=== PATIENT | female | born 1995 | race Caucasian/White ===

== ENCOUNTER 2020-02-25 09:27 | Emergency (ER) | payer OTHER ==
[2020-02-25 10:18] LABS: BASOPHILS # (AUTO) 0.1 10^3/uL (0.0-0.1); BASOPHILS % (AUTO) 0.8 %; EOSINOPHILS # (AUTO) 0.1 10^3/uL (0.0-0.7); EOSINOPHILS % (AUTO) 1.2 %; HGB - HEMOGLOBIN 14.3 g/dL (12.0-16.0); LYMPHOCYTES # (AUTO) 1.8 10^3/uL (1.5-3.5); LYMPHOCYTES % (AUTO) 21.7 %; MEAN CORPUSCULAR HEMOGLOBIN 28.8 pg (27.0-31.0); MEAN CORPUSCULAR HGB CONC 32.4 g/dL (32.0-36.0); MEAN CORPUSCULAR VOLUME 88.9 fL (81.0-99.0); MEAN PLATELET VOLUME 11.7 fL (7.9-10.8); MONOCYTES # (AUTO) 0.4 10^3/uL (0.0-1.0); MONOCYTES % (AUTO) 4.5 %; NEUTROPHILS % (AUTO) 71.4 %; PLT - PLATELET COUNT 191 10^3/uL (130-450); RED BLOOD COUNT 4.97 10^6/uL (4.20-5.40); RED CELL DISTRIBUTION WIDTH 11.8 % (12.0-15.0); WHITE BLOOD COUNT 8.5 x10^3/uL (4.8-10.8)
[2020-02-25 10:25] LABS: HCG UR QUAL NEGATIVE
[2020-02-25 10:26] LABS: CLARITY,URINE CLEAR (CLEAR); LEUKOCYTE ESTERASE, URINE SMALL (NEGATIVE); NITRITE,URINE NEGATIVE (NEGATIVE); UROBILINOGEN,URINE 0.2 (NORMAL) E.U./dL (NORMAL)
[2020-02-25 10:27] LABS: BILIRUBIN,URINE NEGATIVE (NEGATIVE); GLUCOSE, URINE (UA) NEGATIVE (NEGATIVE); KETONES,URINE (UA) NEGATIVE (NEGATIVE); OCCULT BLOOD,URINE NEGATIVE (NEGATIVE); PH,URINE 7.5 PH (5.0-7.5); PROTEIN,URINE NEGATIVE (NEGATIVE)
[2020-02-25 10:36] LABS: ALBUMIN 4.9 g/dL (3.2-5.5); ALBUMIN/GLOBULIN RATIO 1.7 (1.0-2.2); BILIRUBIN,TOTAL 1.3 mg/dL (0.2-1.0); CALCIUM 9.7 mg/dL (8.5-10.3); TOTAL PROTEIN 7.8 g/dL (6.7-8.2)
[2020-02-25 10:56] LABS: BACTERIA,URINE None Seen /HPF (None Seen); RBC,URINE 0-5 /HPF (0-5); SQUAMOUS EPITHELIAL CELL,UR FEW Squamous (<= Few)
--- NOTE | 2020-02-25 10:59 | ED Physician Documentation ---
PD HPI ABD PAIN - Stated complaint Stated Complaint: ABD PX - Chief complaint Chief Complaint: Abd Pain - History obtained from History obtained from: Patient - History of Present Illness Timing - onset: How many months ago (2 months of intermittent abd cramping, loose stools/diarrhea, and some nausea. Worse the past few days.) Timing - duration: Months Timing - details: Gradual onset, Still present (worse cramps and stools with nausea the past few days.), Waxing and waning Quality: Cramping, Aching, Pain Location: All over / everywhere, Periumbilical Radiation: No: Chest, Lower back, Left flank, Right flank Improved by: Laying still. No: Eating Worsened by: Eating, Palpation. No: Breathing Associated symptoms: Nausea, Diarrhea, Loss of appetite, Weight loss (about 15- 20 lbs over past couple months). No: Fever, Vomiting, Constipation, Melena, Hematochezia, Dysuria, Near syncope / syncope, Vaginal bleeding, Vaginal dc Similar symptoms before: No diagnosis, Has not had sx before Recently seen: Not recently seen Review of Systems Constitutional: reports: Myalgias, Fatigue, Weight Loss. denies: Fever, Chills Nose: denies: Rhinorrhea / runny nose, Congestion Throat: denies: Sore throat Respiratory: denies: Cough GI: reports: Abdominal Pain, Nausea, Diarrhea. denies: Abdominal Swelling, Vomiting, Constipation : denies: Dysuria, Frequency Skin: denies: Rash, Lesions Musculoskeletal: denies: Neck pain, Back pain Neurologic: denies: Focal weakness, Numbness, Altered mental status, Headache PD PAST MEDICAL HISTORY - Past Medical History Cardiovascular: None Respiratory: None Endocrine/Autoimmune: None GI: None - Present Medications Home Medications: Ambulatory Orders Medication Instructions Recorded Confirmed Loperamide [Imodium] 1 - 2 mg PO Q6H PRN #60 capsule 02/25/20 Naproxen 500 mg PO BID #20 tablet 02/25/20 Ondansetron Odt [Zofran] 4 mg TL Q6H PRN #30 tablet 02/25/20 dexAMETHasone [Decadron] 4 mg PO DAILY #5 tablet 02/25/20 - Allergies Allergies/Adverse Reactions: Allergies Allergy/AdvReac Type Severity Reaction Status Date / Time No Known Drug Allergies Allergy Verified 02/25/20 09:34 - Social History Does the pt smoke?: No Does the pt drink ETOH?: No - Family History Family history: reports: Other (sister with Crohns) PD ED PE NORMAL - Vitals Vital signs reviewed: Yes - General General: Alert and oriented X 3, No acute distress, Well developed/nourished - HEENT HEENT: Moist mucous membranes, Pharynx benign - Neck Neck: Supple, no meningeal sign, No adenopathy - Cardiac Cardiac: RRR, No murmur - Respiratory Respiratory: Clear bilaterally - Abdomen Abdomen: Normal bowel sounds, Soft, Non distended, No organomegaly, Other (some mild tenderness mid abd without guarding, percussion tenderness. Not tender McBurneys point. Not tender in GB area. ) - Female Female : Deferred - Rectal Rectal: Deferred - Back Back: No CVA TTP - Derm Derm: Normal color, Warm and dry - Extremities Extremities: No edema, No calf tenderness / cord - Neuro Neuro: Alert and oriented X 3, No motor deficit, Normal speech Results - Vitals Vitals: Vital Signs - 24 hr 02/25/20 02/25/20 02/25/20 09:30 11:30 12:00 Temperature 36.7 C Heart Rate 88 58 L 100 Respiratory 20 18 20 Rate Blood Pressure 142/106 H 105/75 128/70 O2 Saturation 100 97 61 L Oxygen O2 Source Room air - Labs Labs: Laboratory Tests 02/25/20 02/25/20 02/25/20 09:42 09:42 10:05 WBC 8.5 RBC 4.97 Hgb 14.3 Hct 44.2 MCV 88.9 MCH 28.8 MCHC 32.4 RDW 11.8 L Plt Count 191 MPV 11.7 H Neut # (Auto) 6.0 Lymph # (Auto) 1.8 [place] # (Auto) 0.4 Eos # (Auto) 0.1 Baso # (Auto) 0.1 Absolute Nucleated RBC 0.00 Nucleated RBC % 0.0 ESR Sodium Potassium Chloride Carbon Dioxide Anion Gap BUN Creatinine Estimated GFR (MDRD) Glucose Calcium Total Bilirubin AST ALT Alkaline Phosphatase Total Protein Albumin Globulin Albumin/Globulin Ratio Lipase Urine Color YELLOW Urine Clarity CLEAR Urine pH 7.5 Ur Specific [place] 1.015 1.015 Urine Protein NEGATIVE Urine Glucose (UA) NEGATIVE Urine Ketones NEGATIVE Urine Occult Blood NEGATIVE Urine Nitrite NEGATIVE Urine Bilirubin NEGATIVE Urine Urobilinogen 0.2 (NORMAL) Ur Leukocyte Esterase SMALL H Urine RBC 0-5 Urine WBC 4-5 Ur Squamous Epith Cells FEW Squamous Urine Bacteria None Seen Ur Microscopic Review INDICATED Urine Culture Comments INDICATED Urine HCG, Qual NEGATIVE 02/25/20 02/25/20 10:05 10:05 WBC RBC Hgb Hct MCV MCH MCHC RDW Plt Count MPV Neut # (Auto) Lymph # (Auto) [place] # (Auto) Eos # (Auto) Baso # (Auto) Absolute Nucleated RBC Nucleated RBC % ESR 2 Sodium 137 Potassium 4.0 Chloride 103 Carbon Dioxide 25 Anion Gap 9.0 BUN 9 Creatinine 1.0 Estimated GFR (MDRD) 69 L Glucose 113 H Calcium 9.7 Total Bilirubin 1.3 H AST 18 ALT 13 Alkaline Phosphatase 50 Total Protein 7.8 Albumin 4.9 Globulin 2.9 Albumin/Globulin Ratio 1.7 Lipase 38 Urine Color Urine Clarity Urine pH Ur Specific [place] Urine Protein Urine Glucose (UA) Urine Ketones Urine Occult Blood Urine Nitrite Urine Bilirubin Urine Urobilinogen Ur Leukocyte Esterase Urine RBC Urine WBC Ur Squamous Epith Cells Urine Bacteria Ur Microscopic Review Urine Culture Comments Urine HCG, Qual PD MEDICAL DECISION MAKING - ED course Complexity details: reviewed results (will eval for immune related, infectious, or malabsorptive. Next step in workup would be GI/likely endoscopy. ), considered differential (diarrheal and abd cramping for couple months. Worse diarrhea and cramps for few days. Nausea. ), d/w patient ED course: She is [place] patient. 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 Referred to them, Did not have BM here so sent with specimen collection kit. Order on Rx pad. Departure - Departure Disposition: 01 Home, Self Care Clinical Impression: Chronic diarrhea, Weight loss, abnormal Condition: Stable Record reviewed to determine appropriate education?: Yes Instructions: ED Diet Vomiting Diarrhea Follow-Up: [facility] [Provider Group] [facility] [Provider Group] Prescriptions: dexAMETHasone [Decadron] 4 mg PO DAILY #5 tablet Loperamide [Imodium] 1 - 2 mg PO Q6H PRN #60 capsule PRN Reason: Diarrhea Naproxen 500 mg PO BID #20 tablet Ondansetron Odt [Zofran] 4 mg TL Q6H PRN #30 tablet PRN Reason: Nausea / Vomiting Comments: Call the main [place] number on your insurance card to ensure the correct referral. I believe it is gastroenterology at the [facility] that they use. Your best evaluation of this will be by a wire loop machine operator. Bring back a sample of your diarrhea for stool studies to include C. difficile, fecal leukocytes, stool culture, Ova and parasite. You can use ondansetron if needed for nausea. Naproxen for pain or cramps and Imodium for loperamide for diarrhea. We will also give Decadron steroid anti- inflammatory for 5 days presuming a possible inflammatory cause. Discharge Date/Time: 02/25/20 12:24
[2020-02-25] MEDS ORDERED: ONDANSETRON ODT 4 MG TABLET TL STA (11:20)
[2020-02-25] MEDS ORDERED: LOPERAMIDE 2 MG CAPSULE PO STA (11:21)
[2020-02-25] MEDS ORDERED: DEXAMETHASONE 10 MG/ML VIAL PO STA (11:21)
[2020-02-25] MEDS ORDERED: CHERRY SYRUP 10 ML UDC PO ONE (11:21)
[2020-02-25 12:05] VITALS: BP 128/70
== END 2020-02-25 12:24 | disposition home or self-care (01) ==
LOC: ED 09:27
DX: A04.72 Enterocolitis due to Clostridium difficile, not specified as recurrent (principal); R63.4 Abnormal weight loss
CPT/HCPCS: 36415; 80053; 81001; 81025; 83516; 83690; 85025; 85651; 87086; 99284; A9270; Q0162; 81003; 83630

== ENCOUNTER 2020-03-04 08:36 | Emergency (ER) | payer OTHER ==
[2020-03-04 08:55] VITALS: BP 131/83
[2020-03-04] MEDS ORDERED: CHERRY SYRUP 10 ML UDC PO ONE (09:42)
[2020-03-04] MEDS ORDERED: DEXAMETHASONE 10 MG/ML VIAL PO STA (09:42)
[2020-03-04] MEDS ORDERED: diphenhydrAMINE 25 MG CAPSULE PO STA (09:42)
--- NOTE | 2020-03-04 09:46 | ED Physician Documentation ---
History of Present Illness - Stated complaint Stated Complaint: FACIAL SWELLING - Chief complaint Chief Complaint: General - History obtained from History obtained from: Patient - History of Present Illness Timing: Today - Additonal information Additional information: 24-year-old female who is had some issues with diarrhea and abdominal cramping and weight loss over the past 2 months was put on some loperamide and ondansetron as well as Naprosyn 1 week ago. She woke this morning with swelling to her face. She has had some improvement in her stool but not resolution of her symptoms. Her stool specimen did come back positive for C. difficile a prescription for vancomycin was called into the [facility] pharmacy however the patient was never notified of the need for this. She has not started the vancomycin. Review of Systems Constitutional: reports: Myalgias, Fatigue, Weight Loss. denies: Fever, Chills Eyes: denies: Decreased vision Ears: denies: Ear pain Nose: denies: Rhinorrhea / runny nose, Congestion Throat: denies: Sore throat Cardiac: denies: Chest pain / pressure, Palpitations Respiratory: denies: Dyspnea, Cough GI: reports: Nausea, Diarrhea. denies: Abdominal Pain, Hematemesis, Bloody / black stool : denies: Dysuria, Frequency Skin: denies: Rash, Lesions Musculoskeletal: denies: Neck pain, Back pain, Extremity pain Neurologic: reports: Generalized weakness. 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 : None HEENT: None Psych: Depression, Anxiety Musculoskeletal: None Derm: Eczema Other Past Medical History: IBS - Past Surgical History Past Surgical History: No - Present Medications Home Medications: Ambulatory Orders Medication Instructions Recorded Confirmed Loperamide [Imodium] 1 - 2 mg PO Q6H PRN #60 capsule 02/25/20 03/04/20 Naproxen 500 mg PO BID #20 tablet 02/25/20 03/04/20 Ondansetron Odt [Zofran] 4 mg TL Q6H PRN #30 tablet 02/25/20 03/04/20 dexAMETHasone [Decadron] 4 mg PO DAILY #5 tablet 02/25/20 03/04/20 Vancomycin [Vancocin] 125 mg PO QID #40 capsule 03/04/20 - Allergies Allergies/Adverse Reactions: Allergies Allergy/AdvReac Type Severity Reaction Status Date / Time No Known Drug Allergies Allergy Verified 03/04/20 08:45 - Social History Does the pt smoke?: No Smoking Status: Current every day smoker Does the pt drink ETOH?: Yes Does the pt have substance abuse?: Yes Substance Use and Type: Marijuana - Immunizations Immunizations are current?: Yes - POLST Patient has POLST: No PD ED PE NORMAL - Vitals Vital signs reviewed: Yes (hypertensive ) - General General: Alert and oriented X 3, Well developed/nourished, Other (anxious and crying ) - HEENT HEENT: Atraumatic, PERRL, EOMI, Other (mild mid facial swelling) - Neck Neck: Supple, no meningeal sign, No bony TTP - Cardiac Cardiac: RRR, No murmur - Respiratory Respiratory: No respiratory distress, Clear bilaterally - Abdomen Abdomen: Normal bowel sounds, Soft, Non tender, No organomegaly, Other (mild fullness) - Back Back: No CVA TTP, No spinal TTP - Derm Derm: Normal color, Warm and dry, No rash - Extremities Extremities: No deformity, No edema - Neuro Neuro: Alert and oriented X 3, family intervention specialist 2-12 intact, No motor deficit, No sensory deficit, Normal speech Eye Opening: Spontaneous Motor: Obeys Commands Verbal: Oriented GCS Score: 15 - Psych Psych: Other (mood is anxious and the affect is sad) Results - Vitals Vitals: Vital Signs - 24 hr 03/04/20 03/04/20 08:45 08:48 Temperature 36.6 C Heart Rate 52 L 49 L Respiratory 18 16 Rate Blood Pressure 121/91 H 131/83 H O2 Saturation 100 100 Oxygen O2 Source Room air PD MEDICAL DECISION MAKING - ED course Complexity details: reviewed results, re-evaluated patient, considered differential, d/w patient ED course: 24-year-old female with chronic diarrhea and weight loss has a specimen demonstrating C. difficile and she has not been treated. She has been treated for the diarrhea with 4 medications and 1 week after starting this she has developed swelling to her face. She indicates that she has been taking all 4 medications as indicated from her prior visit including Naprosyn, Decadron, loperamide and ondansetron. She reports that she has taken the loperamide most frequently and continuously. She does indicate that she felt better the day after she was here. Today we have administered 10 mg of dexamethasone 25 mg of Benadryl and we will continue her on Benadryl for 2 days as well as starting the vancomycin and stopping her other medications. Departure - Departure Disposition: 01 Home, Self Care Clinical Impression: C. difficile colitis Medication reaction Qualifiers: Encounter type: initial encounter Qualified Code(s): T50.905A - Adverse effect of unspecified drugs, medicaments and biological substances, initial encounter Condition: Stable Instructions: Clostridium Difficile Infec, ED Drug React Allergic Follow-Up: [facility] [Provider Group] Prescriptions: Vancomycin [Vancocin] 125 mg PO QID #40 capsule Comments: Today it appears he may have had reaction to 1 of your medications prescribed for symptom control of your diarrhea. It appears that your diarrhea is related to a bacterial infection and we will start you today on some vancomycin. My recommendation is to discontinue the other medications and take Benadryl for the next 2 days every 6 hours. Expect the swelling in your face to resolve. Expect your diarrhea to improve dramatically.
== END 2020-03-04 10:15 | disposition home or self-care (01) ==
LOC: ED 08:36
DX: A04.72 Enterocolitis due to Clostridium difficile, not specified as recurrent (principal); R22.0 Localized swelling, mass and lump, head; T47.6X5A Adverse effect of antidiarrheal drugs, initial encounter
CPT/HCPCS: 99282; 99284; A9270

== ENCOUNTER 2021-01-22 07:12 | Emergency (ER) | payer OTHER ==
--- NOTE | 2021-01-22 07:26 | ED Physician Documentation ---
PD HPI FEMALE - Stated complaint Stated Complaint: ABD PX - 7WEEKS - Chief complaint Chief Complaint: Abd Pain - History obtained from History obtained from: Patient - History of Present Illness Timing - onset: Last night (has had intermittent LLQ crampy pains for several days; worse and consistent overnight.) Timing - duration: Hours Timing - details: Abrupt onset, Still present, Waxing and waning Associated symptoms: Abdominal pain (LLQ/suprapubic), Vaginal discharge (baseline mild discharge, slightly more yellow recently). 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 denies: Vomiting, Diarrhea : reports: Discharge, LMP (7 wks ago). denies: Dysuria, Frequency Neurologic: denies: Near syncope PD PAST MEDICAL HISTORY - Past Medical History Cardiovascular: None Respiratory: None Neuro: None Endocrine/Autoimmune: None GI: None, Other ROLL TENSION TESTER: None : None HEENT: None Psych: Depression, Anxiety Musculoskeletal: None Derm: Eczema - Past Surgical History Past Surgical History: No - Present Medications Home Medications: Ambulatory Orders Medication Instructions Recorded Confirmed Docusate Sodium 100Mg Capsule 100 mg PO DAILY #20 cap 01/22/21 [Colace 100Mg Capsule] Ondansetron Odt [Zofran] 4 mg TL Q6H PRN #10 tablet 01/22/21 Pnv No.95/Ferrous Fum/Folic AC 1 each PO DAILY 01/22/21 01/22/21 [ Caplet] metroNIDAZOLE [Flagyl] 500 mg PO BID #14 tablet 01/22/21 - Allergies Allergies/Adverse Reactions: Allergies Allergy/AdvReac Type Severity Reaction Status Date / Time No Known Drug Allergies Allergy Verified 01/22/21 07:22 - Social History Does the pt smoke?: No Smoking Status: Current every day smoker Does the pt drink ETOH?: Yes Does the pt have substance abuse?: Yes - Immunizations Immunizations are current?: Yes - POLST Patient has POLST: No PD ED PE NORMAL - Vitals Vital signs reviewed: Yes - General General: Alert and oriented X 3, No acute distress, Well developed/nourished - Abdomen Abdomen: Normal bowel sounds, Soft, Non distended, No organomegaly, Other (mod tender LLQ without guarding nor percussion tenderness. Rest of abd not tender. No hernias. ) - Female Female : Deferred - Derm Derm: Normal color, No rash - Extremities Extremities: Normal ROM s pain, No edema - Neuro Neuro: Alert and oriented X 3, No motor deficit, Normal speech Results - Vitals Vitals: Vital Signs - 24 hr 01/22/21 01/22/21 07:19 09:47 Temperature 36.4 C L 36.2 C L Heart Rate 88 68 Respiratory 16 16 Rate Blood Pressure 153/89 H 125/75 O2 Saturation 100 100 Oxygen O2 Source Room air - Labs Labs: Laboratory Tests 01/22/21 01/22/21 01/22/21 07:50 07:50 08:00 HCG, Quant Urine Color YELLOW Urine Clarity HAZY Urine pH 6.0 Ur Specific [place] 1.020 Urine Protein NEGATIVE Urine Glucose (UA) NEGATIVE Urine Ketones NEGATIVE Urine Occult Blood NEGATIVE Urine Nitrite NEGATIVE Urine Bilirubin NEGATIVE Urine Urobilinogen 0.2 (NORMAL) Ur Leukocyte Esterase SMALL H Urine RBC 3 Urine WBC 6-10 H Ur Squamous Epith Cells MOD Squamous H Urine Bacteria Few Urine Trichomonas PRESENT H Ur Microscopic Review INDICATED Urine Culture Comments NOT INDICATED C. glabrata (PCR) NEGATIVE C. krusei (PCR) NEGATIVE Anisa species DNA POSITIVE A Chlam trachomat DNA PCR POSITIVE A N.gonorrhoeae DNA (PCR) NEGATIVE T. vaginalis (PCR) POSITIVE A POSITIVE A Bact Vaginosis (PCR) POSITIVE A Blood Type Blood Type Recheck 01/22/21 01/22/21 01/22/21 08:05 08:05 09:42 HCG, Quant [id number] Urine Color Urine Clarity Urine pH Ur Specific [place] Urine Protein Urine Glucose (UA) Urine Ketones Urine Occult Blood Urine Nitrite Urine Bilirubin Urine Urobilinogen Ur Leukocyte Esterase Urine RBC Urine WBC Ur Squamous Epith Cells Urine Bacteria Urine Trichomonas Ur Microscopic Review Urine Culture Comments C. glabrata (PCR) C. krusei (PCR) Anisa species DNA Chlam trachomat DNA PCR N.gonorrhoeae DNA (PCR) T. vaginalis (PCR) Bact Vaginosis (PCR) Blood Type A POSITIVE Blood Type Recheck A POSITIVE - Rads (name of study) OB U/S Radiology: Prelim report reviewed (live IUP 6w5d; right corpus luteum cyst. No acute process. ), See rad report PD MEDICAL DECISION MAKING - ED course Complexity details: reviewed results (bedside U/S by me showed apparent IUP at 5w1d. No free fluid. FHB not seen but likely age related. Will get formal U/S. ), considered differential (concern for ectopic versus cyst versus torsion or other concern. Could be some element of constipation with left lower abd pain. ), d/w patient Departure - Departure Disposition: 01 Home, Self Care Clinical Impression: Pelvic pain, Trichomonas vaginitis Qualifiers: Weeks of gestation: less than 8 weeks Qualified Code(s): Z3A.01 - Less than 8 weeks gestation of Condition: Stable Record reviewed to determine appropriate education?: Yes Follow-Up: Rose Marie Jo PA-C [Primary Care Provider] - Prescriptions: Docusate Sodium 100Mg Capsule [Colace 100Mg Capsule] 100 mg PO DAILY #20 cap metroNIDAZOLE [Flagyl] 500 mg PO BID #14 tablet Ondansetron Odt [Zofran] 4 mg TL Q6H PRN #10 tablet PRN Reason: Nausea / Vomiting Comments: I looked at your record from last year with the C. difficile and you are not prescribed metronidazole for it. We therefore should be safe using metronidazole now for the trichomonas. Stay well-hydrated. Ondansetron if needed for nausea. Metronidazole twice daily for a week for the vaginitis. Use a daily stool softener as well for the next several days to week and then as needed. Tylenol every 4-6 hours if needed for pain or cramps. You can use ibuprofen or naproxen every 6-8 hours if needed as well up through 20 weeks of . Tylenol is good through all of . Recheck if not improved well over the next several days and return if worsening. Your ultrasound was normal showing a good intrauterine and no problems with the ovaries (an expected corpus luteum cyst was seen on the right). Your fiance should be treated for Trich as well, to ensure not passing back and forth. Discharge Date/Time: 01/22/21 09:49
--- OUTSIDE RECORDS SUMMARY | 2021-01-22 07:54 | EXTERNAL MEDICAL SUMMARY RPT | Continuity of Care Document ---
:1995 Demographics Phone Unavailable Preferred Language Unknown Marital Status Unknown Taoist Affiliation Unknown Race Unknown Ethnic Group Unknown Author Organization [facility] Address [address] [id number] Phone Allergies Encounters Medications Problems Results
[2021-01-22 08:13] LABS: BILIRUBIN,URINE NEGATIVE (NEGATIVE); CLARITY,URINE HAZY (CLEAR); GLUCOSE, URINE (UA) NEGATIVE (NEGATIVE); KETONES,URINE (UA) NEGATIVE (NEGATIVE); LEUKOCYTE ESTERASE, URINE SMALL (NEGATIVE); NITRITE,URINE NEGATIVE (NEGATIVE); OCCULT BLOOD,URINE NEGATIVE (NEGATIVE); PROTEIN,URINE NEGATIVE (NEGATIVE); UROBILINOGEN,URINE 0.2 (NORMAL) E.U./dL (NORMAL)
[2021-01-22 08:21] LABS: BACTERIA,URINE Few /HPF (None Seen); RBC,URINE 3 /HPF (0-5); SQUAMOUS EPITHELIAL CELL,UR MOD Squamous (<= Few); TRICHOMONAS,URINE PRESENT (None Seen)
[2021-01-22 09:48] VITALS: BP 125/75
[2021-01-22 09:56] LABS: BACTERIAL VAGINOSIS DNA POSITIVE (NEGATIVE); CANDIDA GLABRATA DNA NEGATIVE (NEGATIVE); CANDIDA GROUP DNA POSITIVE (NEGATIVE); CANDIDA KRUSEI DNA NEGATIVE (NEGATIVE); TRICHOMONAS VAGINALIS DNA POSITIVE (NEGATIVE)
--- NOTE | 2021-01-22 10:31 | Ultrasound Report ---
PROCEDURE: OB First Trimester INDICATIONS: early 7 wks by dates; LLQ pain OUTSIDE/PRIOR DATING DATA: Last menstrual period (LMP): 12/05/2020. LMP-based estimated date of delivery (DEBORAH): 09/11/2021. First dating scan (date and location): 6 weeks 5 days. Shawn. Estimated date of delivery (DEBORAH) from first dating scan: 09/12/2021. The below data below was generated using the initial ultrasound DEBORAH of 09/12/2021 TECHNIQUE: Real-time scanning was performed of the fetus and maternal pelvic organs, with image documentation. COMPARISON: None FINDINGS: Embryo: Cervical length: 3.5 cm. Closed. Mean gestational sac diameter: 2.36 cm. 7 weeks 3 days [place]-rump length: 0.75 cm. 6 weeks 5 days Composite gestational age today: 6 weeks 5 days. Measurement variability in dating: +/- 4 weeks by LMP, +/- 7 days by mean sac diameter (use before 6 weeks gestation if crown-rump length not able to be measured), +/- 5 days by crown-rump length (6-12 weeks gestation). Maternal organs: A right corpus luteal cyst measures 2.4 x 2.1 x 3.4 cm. A right ovarian cyst measure s 2.4 x 2.3 x 2.6 cm. IMPRESSION: Live intrauterine with a composite ultrasound age of 6 weeks 5 days Reviewed by: Hiram Howell on 01/22/2021 10:30 AM PDT Approved by: Hiram Howell on 01/22/2021 10:30 AM PDT Station ID: [id number]
--- NOTE | 2021-01-22 10:34 | Ultrasound Report ---
PROCEDURE: OB First Trimester INDICATIONS: early 7 wks by dates; LLQ pain OUTSIDE/PRIOR DATING DATA: Last menstrual period (LMP): 12/05/2020. LMP-based estimated date of delivery (DEBORAH): 09/11/2021. First dating scan (date and location): 6 weeks 5 days. Shawn. Estimated date of delivery (DEBORAH) from first dating scan: 09/12/2021. The below data below was generated using the initial ultrasound DEBORAH of 09/12/2021 TECHNIQUE: Real-time scanning was performed of the fetus and maternal pelvic organs, with image documentation. COMPARISON: None FINDINGS: Embryo: Cervical length: 3.5 cm. Closed. Mean gestational sac diameter: 2.36 cm. 7 weeks 3 days [place]-rump length: 0.75 cm. 6 weeks 5 days Composite gestational age today: 6 weeks 5 days. Measurement variability in dating: +/- 4 weeks by LMP, +/- 7 days by mean sac diameter (use before 6 weeks gestation if crown-rump length not able to be measured), +/- 5 days by crown-rump length (6-12 weeks gestation). Maternal organs: A right corpus luteal cyst measures 2.4 x 2.1 x 3.4 cm. A right ovarian cyst measure s 2.4 x 2.3 x 2.6 cm. IMPRESSION: Live intrauterine with a composite ultrasound age of 6 weeks 5 days Reviewed by: Hiram Howell on 01/22/2021 10:33 AM PDT Approved by: Hiram Howell on 01/22/2021 10:33 AM PDT Station ID: [id number]
[2021-01-22 21:14] LABS: NEISSERIA GONORRHOEAE DNA NEGATIVE (NEGATIVE)
[2021-01-22 21:29] LABS: CHLAMYDIA TRACHOMATIS DNA POSITIVE (NEGATIVE); TRICHOMONAS VAGINALIS DNA POSITIVE (NEGATIVE)
== END 2021-01-22 09:49 | disposition home or self-care (01) ==
LOC: ED 07:12
DX: O98.311 Other infections with a predominantly sexual mode of transmission complicating pregnancy, first trimester (principal); A59.01 Trichomonal vulvovaginitis; O34.81 Maternal care for other abnormalities of pelvic organs, first trimester; N83.11 Corpus luteum cyst of right ovary; Z3A.01 Less than 8 weeks gestation of pregnancy
CPT/HCPCS: 36415; 81001; 81003; 84702; 86900; 86901; 87086; 87491; 87591; 87661; 87801; 99283; 99284

== ENCOUNTER 2023-01-03 10:00 | Outpatient (CLI) | payer OTHER ==
[2023-01-03 17:47] LABS: BASOPHILS # (AUTO) 0.1 10^3/uL (0.0-0.1); BASOPHILS % (AUTO) 0.7 %; EOSINOPHILS # (AUTO) 0.1 10^3/uL (0.0-0.7); HCT - HEMATOCRIT 43.4 % (37.0-47.0); HGB - HEMOGLOBIN 14.3 g/dL (12.0-16.0); LYMPHOCYTES # (AUTO) 2.6 10^3/uL (1.5-3.5); LYMPHOCYTES % (AUTO) 24.2 %; MEAN CORPUSCULAR HEMOGLOBIN 28.8 pg (27.0-31.0); MEAN CORPUSCULAR HGB CONC 32.9 g/dL (32.0-36.0); MEAN CORPUSCULAR VOLUME 87.3 fL (81.0-99.0); MEAN PLATELET VOLUME 12.3 fL (7.9-10.8); MONOCYTES # (AUTO) 0.6 10^3/uL (0.0-1.0); MONOCYTES % (AUTO) 5.4 %; NEUTROPHILS # (AUTO) 7.4 10^3/uL (1.5-6.6); NEUTROPHILS % (AUTO) 68.3 %; PLT - PLATELET COUNT 244 10^3/uL (130-450); RED BLOOD COUNT 4.97 10^6/uL (4.20-5.40); RED CELL DISTRIBUTION WIDTH 11.8 % (12.0-15.0); WHITE BLOOD COUNT 10.8 x10^3/uL (4.8-10.8)
[2023-01-03 17:55] LABS: CALCIUM 9.6 mg/dL (8.5-10.3); CREATININE 0.8 mg/dL (0.4-1.0)
== END 2023-01-03 10:15 | disposition home or self-care (01) ==
LOC: LAB.N 10:00
PROVIDERS: ATTEND Physician Assistant Medical
DX: R42 Dizziness and giddiness (principal)
CPT/HCPCS: 36415; 80048; 84443; 85025